=== PATIENT | female | born 1995 | race Caucasian/White ===

== ENCOUNTER 2016-07-01 17:34 | Emergency (ER) | payer MEDICAID ==
[~2016-07-01] VITALS: Ht 152.4 cm; Wt 44.5 kg
[~2016-07-01 17:34] MED LIST: AMOXICILLIN500 M2 PO; AZO YEAST PO; BC1 POW PO; BCP PO; BENADRYL 25MG C25 MG PO; CEPHALEXIN500 MG PO; CITALOPRAM10 MG PO; FLINTSTONES COM1 CTB; FLUOXETINE HCL40 MG PO; HYDROCODONE BIT PO; HYDROXYZINE 25M25 MG PO; IBUPROFEN400 MG PO; KEFLEX 500MG.500 MG PO; LINESS PO; LINZESS145 MCG PO; LORTAB 500 MG-71 TAB PO; MACROBID 100MG100 MG; MECLIZINE 25MG25 MG PO; MEDROL 4MG. DOSE4 MG PO; NAPROSYN 500MG500 MG PO; NOMEDS; OXYCODONE-ACETA1 TAB PO; PERCOCET 5/3251 EACH PO; PHENAZOPYRIDINE PO; PRENATAL1 TA5 PO; PROMETHAZINE25 M1 PO; PYRIDIUM 200MG200 MG PO; RANITIDINE HCL; SEPTRA DS 800 M1 TAB PO; SULFAMETHOXAZOLE-TMP PO; TYLENOL ES500 MG; ZANTAC 150150 MG PO; ZITHROMAX Z-PA250 M1 PO
[2016-07-01] MEDS ORDERED: FALMINA PO (18:01)
[2016-07-01 18:11] LABS: HEMOGLOBIN 15.5 g/dL (12.2-16.2); LYMPH # 0.8 K/mm3 (0.7-4.5); LYMPH % 8.2 % (10-50.0)
[2016-07-01 18:18] LABS: URINE BLOOD NEGATIVE (NEG)
[2016-07-01 18:21] LABS: URINE BILIRUBIN - DIPSTICK 1+ (NEG)
[2016-07-01 18:35] LABS: NEUTROPHILS 85 % (42-76); SPHEROCYTE 1+
--- NOTE | 2016-07-01 18:37 | Emergency Room Report ---
History of Present Illness Time Seen by 288 Presenting Problem in Triage REPPt arrived:Walked Presenting Problem:PT SENT OVER FROM [facility]- PT REPORTS SHARP STABBING R SIDED LOWER ABD PAIN THAT IS RADIATING TO R LOWER SIDE OF BACK. PT STATES WOKE UP WITH PAIN THIS MORNING. 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 N Clinical Suspician of Infection? N Mental Status: 1 - Regular (Normal Baseline) Sepsis Risk:Possible Sepsis Risk Have you (or family members/close friends) recently traveled outside the [place]? N If Yes, where/when: Have you had exposure to infectious disease within the past month? N TB? Other? Specify: 21 years old white female who developed RIGHT lower quadrant abdominal pain started 10 hours ago. She is nauseous no vomiting no diarrhea no fever no chills. Source patient, RN notes reviewed, family ALLERGIES Coded Allergies: No Known Allergies (10/26/15) (Regino CHIRINOS,[facility]) Cardiac Chest Pain Chest pain indicative of cardiac No Timing/Duration this evening Severity moderate Home Medications Reported Medications Linaclotide (Linzess 145MCG) 145 MCG PO DAILY LEVONORGESTREL-ETHIN ESTRADIOL (Falmina-28 Tablet) 1 TAB PO DAILY #28 Fluoxetine Hcl 40 MG PO DAILY #30 (Manolo CHIRINOS,Fina Ibanez) History Medical History General CAD? No Angina: No [place]: No Hypertension? No Hyperlipidemia? No CHF? No DVT? No PE? No COPD? No Asthma? No Anemia? No GERD? No Gastric ulcers? No GI Bleed? No Hernia? No Thyroid Problems? No Hypothyroidism? No CVA? No Seizures? No Diabetes? No Insulin Dependent: No Insulin Pump: No Home FSBS? No Renal Insuffiency? No End Stage Renal Disease? No UTI? Yes Stones? No BPH? No GB Disease: No Nephritic Syndrome? No Asplenia? No Hepatitis? No Sickle Cell Disease? No Arthritis? No Migraines? No Cataracts? No Glaucoma? No MRSA? No HIV? No TB? No Anxiety? Yes Depression? Yes Cancer? No More? 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 Respiratory no symptoms reported Cardiovascular no symptoms reported Gastrointestinal see HPI Genitourinary no symptoms reported. Musculoskeletal no symptoms reported Skin no symptoms reported Psychiatric/Neurological no symptoms reported (Regino CHIRINOS,Alem) Physical Exam Vital Signs Vital Signs Date Time Temp Pulse Resp B/P Pulse O2 O2 Flow FiO2 Ox Delivery Rate 07/01 2106 18 07/01 2044 99.0 86 20 115/49 99 07/01 1954 88 20 118/57 100 07/01 1940 20 07/01 1914 120 20 118/77 98 07/01 1849 20 07/01 1843 100.3 118 20 123/74 98 07/01 1755 99.4 123 20 146/72 100 - WBC >12,000 or <4,000 or 10% bands? 2 or more SIRS Criteria Met? B/P:146/72 MAP:96 Creatinine >2.0? UA output<0.5ml/kg/hr for 2 hrs? Platelet count >100,000? Lactate >2.0mmol/1? INR >1.2 or PTT > than 60 sec? Evidence of Organ Dysfunction? Provider documented clinical suspician of infection? N Sepsis Criteria Count: 2 Sepsis Risk: Possible Sepsis Risk General Appearance normal appearance, WD/WN Eye Exam - bilateral eye normal exam, bilateral eye PERRL, bilateral eye EOMI Ear, Nose, Throat hearing grossly normal, normal ENT inspection Neck normal inspection, non-tender, supple, full range of motion Respiratory Status Yes: trachea midline, chest symmetrical, non tender chest. No: respiratory distress. Lung Sounds bilateral: normal breath sounds, lungs clear. 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 2 or more SIRS Criteria Met? B/P:115/49 MAP:96 Creatinine >2.0? UA output<0.5ml/kg/hr for 2 hrs? Platelet count >100,000? Lactate >2.0mmol/1? INR >1.2 or PTT > than 60 sec? Evidence of Organ Dysfunction? Provider documented clinical suspician of infection? N Sepsis Criteria Count: 2 Sepsis Risk: Possible Sepsis Risk General Appearance no apparent distress Extremities normal inspection Strength 4 Upper Ext (L), 4 Upper Ext (R), 4 Lower Ext (L), 4 Lower Ext (R) Mental status normal mood/affect Skin intact (Manolo CHIRINOS,Fina Ibanez) Medical Decision Making LABS/Meds/Orders Pt receiving controlled substance in ED? No Results/Orders Laboratory Tests 07/01/16 1800: Sodium 134 L, Potassium 3.8, Chloride 99, Carbon Dioxide 28, BUN 5 L, Creatinine 0.8, Estimated Creat Clear 77, Estimated GFR (MDRD) 90, Glucose 105, Calcium 9.1, Total Bilirubin 1.3 H, AST 6 L, ALT 14, Alkaline Phosphatase 63, Total Protein 7.8, Albumin 4.1, Globulin 3.7 H, Albumin/Globulin Ratio 1.1, WBC 10.0, RBC 4.48, Hgb 15.5, Hct 42.7, MCV 95.4, RDW 13.2, Plt Count 273, MPV 6.0 L, Gran % 87.0 H, Gran # 8.7 H, Total Counted 100, Lymphocytes % 8.2 L, Monocytes % 4.4, Eosinophils % 0.2, Basophils % 0.3, Neutrophils 85 H, Lymphocytes (Manual) 12, Lymphocytes # 0.8, Monocytes (Manual) 3, Monocytes # 0.4, Eosinophils # 0.0, Basophils # 0.0, Platelet Estimate NORMAL, Microcytosis 1+, Spherocytes 1+, PUBS MCHC 36.3 H, MCH 34.7 H, Urine Color YELLOW, Urine Appearance CLEAR, Urine pH 6.0, Ur Specific [place] >= 1.030, Urine Protein NEGATIVE, Urine Ketones NEGATIVE, Urine Blood NEGATIVE, Urine Nitrate NEGATIVE, Urine Bilirubin 1+ H, Urine Urobilinogen 1.0, Ur Leukocyte Esterase NEGATIVE, Urine RBC OCC, Urine WBC OCC, Ur Squamous Epith Cells 10-20, Urine Bacteria 2+, Urine Mucus 4+, Urine Glucose NEGATIVE Current Medication Orders Sig/Laury Start time Last Medication Dose Route Stop Time Status Admin Morphine Sulfate 0 .STK-MED ONE 07/01 2103 DC .ROUTE Iopamidol 75 ML ONCE ONE 07/01 2014 UNV 07/01 IV 07/01 Sodium Chloride 10 ML ONCE ONE 07/01 2014 UNV 07/01 IV 07/01 Ertapenem 0 .STK-MED ONE 07/01 1930 DC .ROUTE Morphine Sulfate 0 .STK-MED ONE 07/01 1930 DC .ROUTE Sodium Chloride 50 ML .STK-MED ONE 07/01 1930 DC IV Ertapenem 1 GM ONCE ONE 07/01 193 DC 07/01 Sodium Chloride 50 ML IV 07/01 1958 1940 Morphine Sulfate 2 MG [id number] PRN 07/01 1930 AC 07/01 IV 210 Sodium Chloride 1,000 ML .Q1H1M 07/01 190 DC 07/01 IV 07/01 1999 185 Sodium Chloride 10 ML PRN PRN 07/01 1900 AC IV 07/02 1853 Diatrizoate Meglum/ 30 ML ONCE ONE 07/01 1844 DC 07/01 Diatrizoate Sod PO 07/01 1845 184 Famotidine 20 MG ONCE ONE 07/01 1844 DC 07/01 IV 07/01 1845 185 Famotidine 0 .STK-MED ONE 07/01 1844 DC IV Ketorolac 15 MG ONCE ONE 07/01 1844 DC 07/01 Tromethamine IV 07/01 1845 184 Ondansetron HCl 4 MG ONCE ONE 07/01 1844 DC 07/01 IV 07/01 1845 185 Sodium Chloride 8 ML ONCE ONE 07/01 1844 DC IV 07/01 1845 Sodium Chloride 1,000 ML .STK-MED ONE 07/01 1844 DC IV Ketorolac 0 .STK-MED ONE 02/09 1844 DC Tromethamine .ROUTE Ondansetron HCl 0 .STK-MED ONE 07/01 1844 DC .ROUTE Diatrizoate Meglum/ 0 .STK-MED ONE 07/01 183 DC Diatrizoate Sod .ROUTE Sodium Chloride 10 ML PRN PRN 07/01 181 AC IV 07/02 180 Orders Procedure Date/time Status DIET-NOTHING BY MOUTH 07/[address] ABD W/RLQ PAIN REQ 07/01 183 Complete IV SALINE LOCK 07/01 180 Active URINALYSIS/COMPLETE 07/01 180 Complete URINE 07/01 180 Complete CBC WITH AUTO DIFF 07/01 180 Complete CHEM 12 PROFILE 07/01 180 Complete CULTURE, URINE 07/01 1800 Active DIFFERENTIAL-WBC 07/01 1800 Complete LABS/Meds/Orders Pt receiving controlled substance in ED? No XRAY/CT/US XRAY/CT/US CT abdomen, pelvis CT interpretation by discussed w/radiologist Time results known: 2117 CT Results abnormal (nonspecific) (Fina French MD) Departure Departure Time of Disposition 1835 Clinical Impression Primary Impression: RLQ abdominal pain Condition STABLE Referrals Katia Bella APRN (Family) Additional Instructions Patient was given IV fluids and Zofran and antibiotics. The patient finished drinking her contrast she is due for a CT scan at 8:15. The patient was signed out to Dr. French denied physician in a stable condition. Discharge Counseling Counseled pt/family regarding diagnosis, test results, home care, follow up needs ED Critical Care Critical Care No If Critical Care minutes are documented, the time involved in the performance of seperately reportable procedures was not counted toward critical care time documented. I directly delivered medical care to this critically ill and/or injured patient. Timely evaluation and treatment was necessary to address the significant organ system(s) dysfunction present in this patient. (Alem Lacy MD) Departure Time of Disposition 2117 Disposition DC Home or Self Care(routine) (Fina French MD) at 1929 at 2123
--- NOTE | 2016-07-01 18:37 | Emergency Room Report ---
History of Present Illness Time Seen by 118 Presenting Problem in Triage REPPt arrived:Walked Presenting Problem:PT SENT OVER FROM [facility]- PT REPORTS SHARP STABBING R SIDED LOWER ABD PAIN THAT IS RADIATING TO R LOWER SIDE OF BACK. PT STATES WOKE UP WITH PAIN THIS MORNING. 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 N Clinical Suspician of Infection? N Mental Status: 1 - Regular (Normal Baseline) Sepsis Risk:Possible Sepsis Risk Have you (or family members/close friends) recently traveled outside the [place]? N If Yes, where/when: Have you had exposure to infectious disease within the past month? N TB? Other? Specify: 21 years old white female who developed RIGHT lower quadrant abdominal pain started 10 hours ago. She is nauseous no vomiting no diarrhea no fever no chills. Source patient, RN notes reviewed, family ALLERGIES Coded Allergies: No Known Allergies (10/26/15) (Regino CHIRINOS,[facility]) Cardiac Chest Pain Chest pain indicative of cardiac No Timing/Duration this evening Severity moderate Home Medications Reported Medications Linaclotide (Linzess 145MCG) 145 MCG PO DAILY LEVONORGESTREL-ETHIN ESTRADIOL (Falmina-28 Tablet) 1 TAB PO DAILY #28 Fluoxetine Hcl 40 MG PO DAILY #30 (Manolo CHIRINOS,Fina Ibanez) History Medical History General CAD? No Angina: No [place]: No Hypertension? No Hyperlipidemia? No CHF? No DVT? No PE? No COPD? No Asthma? No Anemia? No GERD? No Gastric ulcers? No GI Bleed? No Hernia? No Thyroid Problems? No Hypothyroidism? No CVA? No Seizures? No Diabetes? No Insulin Dependent: No Insulin Pump: No Home FSBS? No Renal Insuffiency? No End Stage Renal Disease? No UTI? Yes Stones? No BPH? No GB Disease: No Nephritic Syndrome? No Asplenia? No Hepatitis? No Sickle Cell Disease? No Arthritis? No Migraines? No Cataracts? No Glaucoma? No MRSA? No HIV? No TB? No Anxiety? Yes Depression? Yes Cancer? No More? 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 Respiratory no symptoms reported Cardiovascular no symptoms reported Gastrointestinal see HPI Genitourinary no symptoms reported. Musculoskeletal no symptoms reported Skin no symptoms reported Psychiatric/Neurological no symptoms reported (Regino CHIRINOS,Alem) Physical Exam Vital Signs Vital Signs Date Time Temp Pulse Resp B/P Pulse O2 O2 Flow FiO2 Ox Delivery Rate 07/01 2106 18 07/01 2044 99.0 86 20 115/49 99 07/01 1954 88 20 118/57 100 07/01 1940 20 07/01 1914 120 20 118/77 98 07/01 1849 20 07/01 1843 100.3 118 20 123/74 98 07/01 1755 99.4 123 20 146/72 100 - WBC >12,000 or <4,000 or 10% bands? 2 or more SIRS Criteria Met? B/P:146/72 MAP:96 Creatinine >2.0? UA output<0.5ml/kg/hr for 2 hrs? Platelet count >100,000? Lactate >2.0mmol/1? INR >1.2 or PTT > than 60 sec? Evidence of Organ Dysfunction? Provider documented clinical suspician of infection? N Sepsis Criteria Count: 2 Sepsis Risk: Possible Sepsis Risk General Appearance normal appearance, WD/WN Eye Exam - bilateral eye normal exam, bilateral eye PERRL, bilateral eye EOMI Ear, Nose, Throat hearing grossly normal, normal ENT inspection Neck normal inspection, non-tender, supple, full range of motion Respiratory Status Yes: trachea midline, chest symmetrical, non tender chest. No: respiratory distress. Lung Sounds bilateral: normal breath sounds, lungs clear. 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 2 or more SIRS Criteria Met? B/P:115/49 MAP:96 Creatinine >2.0? UA output<0.5ml/kg/hr for 2 hrs? Platelet count >100,000? Lactate >2.0mmol/1? INR >1.2 or PTT > than 60 sec? Evidence of Organ Dysfunction? Provider documented clinical suspician of infection? N Sepsis Criteria Count: 2 Sepsis Risk: Possible Sepsis Risk General Appearance no apparent distress Extremities normal inspection Strength 4 Upper Ext (L), 4 Upper Ext (R), 4 Lower Ext (L), 4 Lower Ext (R) Mental status normal mood/affect Skin intact (Manolo CHIRINOS,Fina Ibanez) Medical Decision Making LABS/Meds/Orders Pt receiving controlled substance in ED? No Results/Orders Laboratory Tests 07/01/16 1800: Sodium 134 L, Potassium 3.8, Chloride 99, Carbon Dioxide 28, BUN 5 L, Creatinine 0.8, Estimated Creat Clear 77, Estimated GFR (MDRD) 90, Glucose 105, Calcium 9.1, Total Bilirubin 1.3 H, AST 6 L, ALT 14, Alkaline Phosphatase 63, Total Protein 7.8, Albumin 4.1, Globulin 3.7 H, Albumin/Globulin Ratio 1.1, WBC 10.0, RBC 4.48, Hgb 15.5, Hct 42.7, MCV 95.4, RDW 13.2, Plt Count 273, MPV 6.0 L, Gran % 87.0 H, Gran # 8.7 H, Total Counted 100, Lymphocytes % 8.2 L, Monocytes % 4.4, Eosinophils % 0.2, Basophils % 0.3, Neutrophils 85 H, Lymphocytes (Manual) 12, Lymphocytes # 0.8, Monocytes (Manual) 3, Monocytes # 0.4, Eosinophils # 0.0, Basophils # 0.0, Platelet Estimate NORMAL, Microcytosis 1+, Spherocytes 1+, PUBS MCHC 36.3 H, MCH 34.7 H, Urine Color YELLOW, Urine Appearance CLEAR, Urine pH 6.0, Ur Specific [place] >= 1.030, Urine Protein NEGATIVE, Urine Ketones NEGATIVE, Urine Blood NEGATIVE, Urine Nitrate NEGATIVE, Urine Bilirubin 1+ H, Urine Urobilinogen 1.0, Ur Leukocyte Esterase NEGATIVE, Urine RBC OCC, Urine WBC OCC, Ur Squamous Epith Cells 10-20, Urine Bacteria 2+, Urine Mucus 4+, Urine Glucose NEGATIVE Current Medication Orders Sig/Laury Start time Last Medication Dose Route Stop Time Status Admin Morphine Sulfate 0 .STK-MED ONE 07/01 2103 DC .ROUTE Iopamidol 75 ML ONCE ONE 07/01 2014 UNV 07/01 IV 07/01 Sodium Chloride 10 ML ONCE ONE 07/01 2014 UNV 07/01 IV 07/01 Ertapenem 0 .STK-MED ONE 07/01 1930 DC .ROUTE Morphine Sulfate 0 .STK-MED ONE 07/01 1930 DC .ROUTE Sodium Chloride 50 ML .STK-MED ONE 07/01 1930 DC IV Ertapenem 1 GM ONCE ONE 07/01 193 DC 07/01 Sodium Chloride 50 ML IV 07/01 1958 1940 Morphine Sulfate 2 MG [id number] PRN 07/01 1930 AC 07/01 IV 210 Sodium Chloride 1,000 ML .Q1H1M 07/01 190 DC 07/01 IV 07/01 1999 185 Sodium Chloride 10 ML PRN PRN 07/01 1900 AC IV 07/02 1853 Diatrizoate Meglum/ 30 ML ONCE ONE 07/01 1844 DC 07/01 Diatrizoate Sod PO 07/01 1845 184 Famotidine 20 MG ONCE ONE 07/01 1844 DC 07/01 IV 07/01 1845 185 Famotidine 0 .STK-MED ONE 07/01 1844 DC IV Ketorolac 15 MG ONCE ONE 07/01 1844 DC 07/01 Tromethamine IV 07/01 1845 184 Ondansetron HCl 4 MG ONCE ONE 07/01 1844 DC 07/01 IV 07/01 1845 185 Sodium Chloride 8 ML ONCE ONE 07/01 1844 DC IV 07/01 1845 Sodium Chloride 1,000 ML .STK-MED ONE 07/01 1844 DC IV Ketorolac 0 .STK-MED ONE 02/09 1844 DC Tromethamine .ROUTE Ondansetron HCl 0 .STK-MED ONE 07/01 1844 DC .ROUTE Diatrizoate Meglum/ 0 .STK-MED ONE 07/01 183 DC Diatrizoate Sod .ROUTE Sodium Chloride 10 ML PRN PRN 07/01 181 AC IV 07/02 180 Orders Procedure Date/time Status DIET-NOTHING BY MOUTH 07/[address] ABD W/RLQ PAIN REQ 07/01 183 Complete IV SALINE LOCK 07/01 180 Active URINALYSIS/COMPLETE 07/01 180 Complete URINE 07/01 180 Complete CBC WITH AUTO DIFF 07/01 180 Complete CHEM 12 PROFILE 07/01 180 Complete CULTURE, URINE 07/01 1800 Active DIFFERENTIAL-WBC 07/01 1800 Complete LABS/Meds/Orders Pt receiving controlled substance in ED? No XRAY/CT/US XRAY/CT/US CT abdomen, pelvis CT interpretation by discussed w/radiologist Time results known: 2117 CT Results abnormal (nonspecific) (Fina French MD) Departure Departure Time of Disposition 1835 Clinical Impression Primary Impression: RLQ abdominal pain Condition STABLE Referrals Katia Bella APRN (Family) Additional Instructions Patient was given IV fluids and Zofran and antibiotics. The patient finished drinking her contrast she is due for a CT scan at 8:15. The patient was signed out to Dr. French denied physician in a stable condition. Discharge Counseling Counseled pt/family regarding diagnosis, test results, home care, follow up needs ED Critical Care Critical Care No If Critical Care minutes are documented, the time involved in the performance of seperately reportable procedures was not counted toward critical care time documented. I directly delivered medical care to this critically ill and/or injured patient. Timely evaluation and treatment was necessary to address the significant organ system(s) dysfunction present in this patient. (Alem Lacy MD) Departure Time of Disposition 2117 Disposition DC Home or Self Care(routine) (Fina French MD) at 1929 at 2123
--- NOTE | 2016-07-01 20:57 | RADIOLOGY REPORT PS360 ---
CT ABD PELVIS W/ CONTRAST CLINICAL INDICATION: RLQ ABDOMINAL PAIN, FEVER ORDERING PHYSICIAN: Alem Lacy MD PATIENT AGE: 21 years COMPARISON: None TECHNIQUE: Axial images obtained with sagittal and coronal reformats. PROCEDURE: Oral Contrast: None IV Contrast: 75 mL is Isovue-[id number] . FINDINGS: Lung bases are clear. The liver, gallbladder, spleen, pancreas, adrenal glands, and kidneys show no acute finding. Small isodensity superior pole left kidney which may be due to small cyst. No evidence of appendicitis. Terminal ileum has an unremarkable appearance. No intestinal obstruction or free air. There is mild to moderate amount fluid in the cul-de-sac slightly toward the right. There is mild thickening versus nondistention of the sigmoid colon. No acute bony anomalies. There are 2 areas of suspected small bowel intussusception one in the right upper quadrant and one in the left upper quadrant. These areas are questioned clinical significance. There is no evidence of small bowel obstruction. This could represent an incidental finding. Please correlate clinically. Consider follow-up small bowel series for further evaluation. IMPRESSION: 1. No evidence of appendicitis or obstructing ureteral calculus. 2. Small amount fluid in the cul-de-sac. Etiology and clinical significance indeterminate. 3. Small incidental areas of small bowel intussusception in the right upper quadrant and left upper quadrant. No intestinal obstruction. Small bowel follow-through may be of further value.
[2016-07-01 21:36] VITALS: BP 110/61
== END 2016-07-01 21:36 | disposition home or self-care (01) ==
LOC: UTC 17:34 → ER 17:38 → UTC 17:38 → ER 21:36
PROVIDERS: Emergency Medicine
DX: R10.31 Right lower quadrant pain (principal); Z72.0 Tobacco use; F41.8 Other specified anxiety disorders
CPT/HCPCS: J1335; J2405; Q9967